=== PATIENT | female | born 1975 | race Caucasian/White ===

== ENCOUNTER → 2023-09-18 | Outpatient (CLI) | payer BC | LOC: MHCPAIN 13:14 | DX: M47.812 Spondylosis without myelopathy or radiculopathy, cervical region (principal); M54.2 Cervicalgia ==

== ENCOUNTER → 2023-12-03 | Outpatient (CLI) | payer BC | LOC: MHCPAIN 09:07 | DX: M47.812 Spondylosis without myelopathy or radiculopathy, cervical region (principal); M48.02 Spinal stenosis, cervical region; M54.81 Occipital neuralgia; G44.86 Cervicogenic headache | CPT/HCPCS: G0463 ==